=== PATIENT | female | born 1980 | race Caucasian/White ===

== ENCOUNTER → 2016-06-26 | Outpatient (CLI) | payer BC, OTHER | END | disposition home or self-care (01) | LOC: C.LABPVFM 11:24 | PROVIDERS: ATTEND Nurse Practitioner Family | DX: S21.002A Unspecified open wound of left breast, initial encounter (principal); X58.XXXA Exposure to other specified factors, initial encounter ==

== ENCOUNTER → 2016-07-23 | Outpatient (CLI) | payer BC ==
--- NOTE | 2016-07-23 15:22 | MAMMOGRAPHY REPORT ---
BILATERAL DIGITAL DIAGNOSTIC MAMMOGRAM TOMOSYNTHESIS WITH CAD AND TARGETED BILATERAL ULTRASOUND: 07/02 CLINICAL HISTORY: 35-year-old woman presents for diagnostic workup. She has a recent history of a l esion on the skin of the 3:00 left breast that became inflamed and demonstrated drainage. She just finished a course of antibiotics and reports it is resolving. Questionable mass felt deep to this l esion on physical exam. Baseline mammography. TECHNIQUE: Bilateral CC and MLO views of the breast with repeat MLO views with more anterior maia emeterio and a right XCCL view were obtained. Subsequently, bilateral spot magnification CC and ML view s were obtained. Current study was also evaluated with a Computer Aided Detection (CAD) system. COMPARISON: Comparison is made to exam dated: 07/24/2009 ultrasound - [facility]. BREAST COMPOSITION: The tissue of both breasts is heterogeneously dense, which may obscure small ma sses. FINDINGS: A triangle skin palpable marker overlies the 3:00 anterior left breast, denoting the skin lesion identified by the patient. There is a 9.1 mm partially circumscribed mass in the far anteri or upper outer quadrant of the right breast for which additional evaluation with ultrasound was perf ormed. There are clustered microcalcifications in the approximate 3:00 middle one third of the righ t breast, and upper outer quadrant of the left breast for which additional spot magnification views were obtained. No focal area of architectural distortion is identified bilaterally. Spot magnification views of the right breast demonstrate a 3.6 cm cluster of calcifications that zoran ears somewhat smudgy and amorphous on the spot magnification CC view and most demonstrate layering o n the spot magnification ML view suggesting benign milk of calcium. A similar appearing yet smaller grouping of smudgy microcalcifications are seen in the left upper outer quadrant. Although these m icrocalcifications in each breast are most likely benign, given that no prior mammograms are availab le to confirm stability, a short interval follow-up diagnostic mammogram of each breast in quitting spot magnification views is recommended in 6 months. Targeted ultrasound was performed in the area of possible mass in the anterior subareolar right alex st. The patient reports there is a palpable mass in that location which was previously ultrasounded in 2009. In the approximate 7:00 periareolar right breast, there is a subdermal mixed echogenicity but predominantly hypoechoic solid-appearing mass, with circumscribed borders. It measures 9.3 x 7 .0 x 11.0 mm. This correlates well in shape and location as the mammographic mass. When comparing to the prior ultrasound images dated 07/24/2009, this mass has increased in size, because at that ti me it measured 4.7 x 6.0 mm. Given the solid nature and interval increase this is indeterminate, wa rranting definitive characterization with tissue sampling. Targeted ultrasound was also performed over the visible dermal lesion in the 2:00 left breast, 2 cm from the nipple. There is a horizontal thin hypoechoic line within the dermis of the 2:[address] over the lesion of concern. This most likely represents a nearly completely resolved epidermal i nclusion cyst/dermal lesion. There is no evidence of a mass deep to this lesion within the breast p arenchyma. IMPRESSION: ACR BI-RADS CATEGORY 4: SUSPICIOUS, TARGETED ULTRASOUND ACR BI-RADS CATEGORY 4: SUSPICI OUS 1. Ultrasound guided core needle biopsy is recommended for an indeterminate solid mixed echogenicit y mass in the 7:00 to 8:00 periareolar right breast, that has increased in size comparing to a prior ultrasound performed in 2009, and is also palpable. 2. Pending benign pathology results from the right breast ultrasound guided core biopsy, short inte rval follow-up diagnostic mammograms and repeat spot magnification views are recommended to ensure s tability of probable milk of calcium/fibrocystic changes within each breast. 3. The lesion in the 2:00 left breast which demonstrated erythema and drainage most likely represen ts a resolved/resolving epidermal inclusion cyst. There is no suspicious mammographic or sonographi c mass within the breast parenchyma in that area. Clinical follow-up is recommended to ensure compl ete resolution. These results and recommendations were discussed with the patient at the time of the exam. She tenta tively scheduled the right breast biopsy and follow-up diagnostic mammograms prior to leaving our de partment. Approximately 10% of breast cancers are not detected with mammography. A negative mammographic repor t should not delay biopsy if a clinically suggestive mass is present. Nerissa Fisher M.D. ay/:07/23/2016 11:21:21 Alternative Energy Technician: Quynh Nelson, [facility] letter sent: Abnormal 4/5 BI-RADS Code: ACR BI-RADS Category 4: Suspicious Ultrasound BI-RADS: ACR BI-RADS Category 4: Suspic ious
== END | disposition home or self-care (01) ==
LOC: C.MAMM 08:24
PROVIDERS: ATTEND Family Medicine
DX: Z12.31 Encounter for screening mammogram for malignant neoplasm of breast (principal); R92.0 Mammographic microcalcification found on diagnostic imaging of breast; N63 Unspecified lump in breast

== ENCOUNTER → 2016-07-31 | Outpatient (CLI) | payer BC ==
--- NOTE | 2016-07-31 10:04 | Discharge Instructions ---
Discharge Instructions Procedure Procedure Date: July 31, 2016. Reason for visit: Right Mass. Discharge Discharge Date: July 31, 2016. Discharge Diagnosis: post right breast ultrasound guided core biopsy Instructions Activity Recommendations: Additional Limitations (see below) Return to School/Work: no limitations Recommended Home Diet: No Limitations Provider Instructions: ACTIVITY RECOMMENDATIONS: * No lifting, pushing, pulling or exercising the affected side for three days. RETURN TO SCHOOL/WORK: * You may return to work/school after the procedure, but do not perform any strenuous activities for 24 to 48 hours. MEDICATIONS: * Tylenol (two 325 mg) every four to six hours if needed for mild pain (if not allergic to Tylenol). DIET: * Resume previous diet. SPECIAL CARE INSTRUCTIONS: * Keep biopsy site dry for 24 hours. May shower after 24 hours, but do not soak (bathe) incision. * May remove Tegaderm (plastic patch) tomorrow AFTER showering. * Leave the steri-strips on for one week. Allow the steri-strips to fall off by themselves. If not off after one week, you may remove them. You may place a Bandaid crosswise over the strips, if desired. * Apply ice 10 minutes on and 10 minutes off as needed. * Wear a bra at bedtime to sleep more comfortably for 2-3 days. * Your referring physician should have the results after approximately 5 to 7 business days. * Call for unusual bleeding, fever, drainage, etc or if you have any questions call [phone] during normal business hours or after hours call Dr Fisher, . FOLLOW UP VISIT: Follow-up with Referring Physician as scheduled. Allergies Coded Allergies: No Known Allergies (Verified Allergy, Intermediate, 04/23/05) Rizwan Lin Recommendations: Call your doctor if: * Temperature above 101 degrees * Pain not relieved by pain medicine ordered * There is increased drainage or redness from any incision * You have any unanswered questions or concerns. Your Doctors Instructions noted above were prepared by provider Nerissa Fisher. Patient Signature Section: Patient Instructions Signature Page Crystal Confer Patient (or Guardian) Signature/Date: I have read and understand the instructions given to me by my caregivers. Caregiver/RN/Doctor Signature/Date: The above-named patient and/or guardian has received patient instructions on this date. + Original Patient Signature Page (only) stays with chart. Please make copy for patient.
--- NOTE | 2016-07-31 14:09 | MAMMOGRAPHY REPORT ---
THIS REPORT HAS BEEN AMENDED. AMENDMENT: 08/07/2016 Nerissa Fisher M.D. Pathology results from the ultrasound guided core biopsy of a slightly enlarging mass in the 7 to 8:0 0 periareolar right breast yielded benign breast tissue and cyst contents. Negative for DCIS and inv asive carcinoma. One of the fragments shows an epithelial lining along the edge suggestive of a kyle gn cyst. Stain for mucicarmine is negative, not supportive of mucin. Given that the imaging appeara nce is not that of an anechoic simple cyst, this lesion is more heterogeneous in echotexture, a repea t targeted ultrasound in the anterior right breast at time of follow-up diagnostic mammograms in both breasts is recommended. It should be noted that 6 month follow-up mammograms of each breast are rec ommended for grouped microcalcifications, as previously described. ULTRASOUND GUIDED BIOPSY RIGHT BREAST: 07/31/2016 CLINICAL HISTORY: Solid palpable mass in the 8:00 periareolar right breast that had increased in size compared to a prior ultrasound performed 07/24/2009. Patient presents for ultrasound-guided core ne edle biopsy for definitive characterization. COMPARISON: Comparison is made to exams dated: 07/31/2016 mammogram, 07/23/2016 ultrasound, 07/23/2016 mammogram, and 07/24/2009 ultrasound - [facility]. PATIENT CONSENT: The procedure, risks and benefits were discussed with the patient and informed writt en consent was obtained. Specific risks to this procedure include: bleeding, infection, puncture of a djacent structure, nontarget biopsy, sampling error, metal allergy and medication reaction. PROCEDURE DESCRIPTION: A time out was performed and the right breast was agreed as the site of biopsy . The skin was prepped and draped in the usual sterile fashion. The solid mass in the 8:00 periareola r right breast was chosen as the target for biopsy. Subcutaneous and intraparenchymal 1% buffered lid ocaine without epinephrine was administered as local anesthesia. A skin incision was made. Through t he incision, 4 samples were taken with a 14 gauge Achieve biopsy device. A metallic marker was placed at the biopsy site. Hemostasis was achieved after manual compression. The patient tolerated the proc edure well and there was no immediate complication. [facility]. Postprocedure right CC and ML views were obtained. A new ribbon-shaped metallic biopsy marker is marley ntified within the subareolar mass in the right breast. No significant post biopsy hematoma is ident ified. Pending benign pathology results, follow-up diagnostic mammograms including repeat spot magni fication views are recommended bilaterally to ensure stability of microcalcifications described on th e previous diagnostic mammogram report. IMPRESSION: ULTRASOUND GUIDED BIOPSY Status post ultrasound guided core needle biopsy of an indeterminate solid mass in the 8:00 periareol ar right breast, with biopsy marker placed at the site. Pending benign pathology results, follow-up diagnostic mammograms including repeat spot magnification views are recommended bilaterally to ensure stability of microcalcifications described on the previo us diagnostic mammogram report. The patient will receive notification of the biopsy results from her referring physician. Nerissa Fisher M.D. ay/:07/31/2016 10:17:23 Transfer Car Operator: Jeffrey HUFFMAN(Navi)(Dex), [facility]
--- NOTE | 2016-07-31 14:11 | MAMMOGRAPHY REPORT ---
UNILATERAL RIGHT DIGITAL DIAGNOSTIC MAMMOGRAM: 07/31/2016 CLINICAL HISTORY: Status post ultrasound guided core biopsy of a solid heterogeneous echotexture cir cumscribed round mass in the 8:00 periareolar right breast. Please refer to the report from right breast ultrasound guided core needle biopsy performed at the s parris time for full detail. IMPRESSION: POST PROCEDURE IMAGING FOR MARKER PLACEMENT Please refer to the report from right breast ultrasound guided core needle biopsy performed at the s parris time for full detail. Approximately 10% of breast cancers are not detected with mammography. A negative mammographic repor t should not delay biopsy if a clinically suggestive mass is present. Nerissa Fisher M.D. ay/:07/31/2016 10:05:12 Curing Supervisor: Jeffrey HUFFMAN(R)(M), [facility] BI-RADS Code: Post Procedure Imaging For Marker Placement
== END | disposition home or self-care (01) ==
LOC: C.MAMM 09:19
PROVIDERS: ATTEND Family Medicine
DX: N63 Unspecified lump in breast (principal); D24.9 Benign neoplasm of unspecified breast

== ENCOUNTER → 2017-01-27 | Outpatient (CLI) | payer BC ==
--- NOTE | 2017-01-27 15:13 | MAMMOGRAPHY REPORT ---
BILATERAL DIGITAL DIAGNOSTIC MAMMOGRAM TOMOSYNTHESIS WITH CAD: 01/27/2017 CLINICAL HISTORY: 36-year-old woman presents 6 months after a benign right breast ultrasound guided c ore biopsy in the anterior breast to follow-up bilateral benign-appearing microcalcifications. TECHNIQUE: Bilateral CC and MLO 2-D and tomosynthesis images, repeat 2-D and MLO views and spot magni fication CC and ML views of each breast were obtained. Current study was also evaluated with a Compu ter Aided Detection (CAD) system. COMPARISON: Comparison is made to exams dated: 07/31/2016 ultrasound biopsy, 07/31/2016 mammogram, 07/02 ultrasound, 07/23/2016 mammogram, and 07/24/2009 ultrasound - [facility]. BREAST COMPOSITION: There are scattered areas of fibroglandular density in both breasts. FINDINGS: There is a stable ribbon-shaped biopsy marker clip in the anterior right breast. The paren chymal pattern is similar to prior mammograms. Clusters of predominantly round and punctate microcal cifications in the medial right breast and lateral left breast measuring 2.6 and 2.4 cm, respectively have not significantly changed in number or distribution comparing to the prior spot magnification v iews. Additionally, nearly all of the calcifications demonstrate flattening or layering on the spot magnification ML views suggesting benign milk of calcium. No suspicious mass, architectural distorti on or cluster of suspicious microcalcifications is seen bilaterally. IMPRESSION: ACR-BI-RADS CATEGORY 3: PROBABLY BENIGN Stable bilateral mammograms including benign-appearing clusters of round and punctate, mostly layerin g microcalcifications in each breast. The microcalcifications most likely represent benign milk of c alcium/fibrocystic change but another 6 month follow-up diagnostic tomosynthesis mammogram including spot magnification views is recommended to ensure at least one year of stability to confirm benignity . These results and recommendations were discussed with the patient at the time of the exam. She tenta tively scheduled a follow-up appointment prior to leaving our department. Approximately 10% of breast cancers are not detected with mammography. A negative mammographic report should not delay biopsy if a clinically suggestive mass is present. Nerissa Fisher M.D. ay/:01/27/2017 09:15:02 Disassembler: Jeffrey HUFFMAN(Navi)(M), [facility] letter sent: Follow Up Recommended 3 BI-RADS Code: ACR-BI-RADS Category 3: Probably Benign
== END | disposition home or self-care (01) ==
LOC: C.MAMM 08:29
PROVIDERS: ATTEND Family Medicine
DX: R92.0 Mammographic microcalcification found on diagnostic imaging of breast (principal)

== ENCOUNTER → 2017-04-10 | Outpatient (CLI) | payer BC | END | disposition home or self-care (01) | LOC: C.PAPS 09:09 | PROVIDERS: ATTEND Obstetrics & Gynecology | DX: Z01.419 Encounter for gynecological examination (general) (routine) without abnormal findings (principal) ==